=== PATIENT | female | born 1940 | race Caucasian/White ===

== ENCOUNTER → 2020-11-16 13:05 | Outpatient (CLI) | payer BC, SELFPAY ==
--- NOTE | ~2020-11-16 | CT_ITS ---
EXAMINATION: CT lumbar spine wo/w con DATE: 11/16/2020 13:38 INDICATION: Low back pain. TECHNIQUE: Computed tomography (CT) of the lumbar spine was performed without and with 100 mL Omnipaq ue 350 intravenous contrast. Automated exposure control and iterative reconstruction technique were e mployed. The dose-length product was 1962.40 mGy-cm. COMPARISON: None FINDINGS: There is a stent in left external iliac artery. There are epidural electrodes in thoracic s pine. Bone alignment is normal. Vertebral body heights are normal. There is moderately decreased disc height at L5-S1. There are bridging endplate osteophytes at L5-S1. There are benign bone islands in S1 and left ilium. The following disc levels are specifically discussed: L1-L2: The disc does not extend beyond the endplate margin. There is mild bilateral facet joint osteo arthritis. There is no neural foraminal stenosis. There is no central canal stenosis. L2-L3: The disc is bulging. There is mild bilateral facet joint osteoarthritis. There is mild bilater al neural foraminal stenosis. There is no central canal stenosis. L3-L4: The disc is bulging. There is mild bilateral facet joint osteoarthritis. There is mild bilater al neural foraminal stenosis. There is mild central canal stenosis. L4-L5: The disc is bulging. There is mild bilateral facet joint osteoarthritis. There is no neural fo raminal stenosis. There is mild central canal stenosis. L5-S1: The disc does not extend beyond the endplate margin. There is severe bilateral facet joint ost eoarthritis. There is mild right neural foraminal stenosis. There is no central canal stenosis. IMPRESSION: 1. Mild lumbar spondylosis. Reviewed, dictated and finalized at location B. IMPRESSION: 1. Mild lumbar spondylosis.
[2020-11-16 13:25] LABS: Estimated Glomerular Filt Rate > 60
== END ==
PROVIDERS: PCP Family Medicine
DX: M54.5 Low back pain (principal); M47.816 Spondylosis without myelopathy or radiculopathy, lumbar region
CPT/HCPCS: 72133; Q9967